=== PATIENT | female | born 2000 | race Caucasian/White ===

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

== ENCOUNTER 2022-01-22 11:46 | Emergency (ER) | payer BC, SELFPAY ==
[2022-01-22 11:50] VITALS: BP 146/73; PULSE 86; RESP 16; TEMP 36.7; O2SAT 100
--- NOTE | 2022-01-22 12:17 | ED.URI ---
HPI - URI/Sore Throat General Chief Complaint: Upper Respiratory Infection Stated Complaint: SORE THROAT/SINUS CONGESITON Time Seen by Provider: 01/22/22 12:18 Source: patient and RN notes reviewed Mode of arrival: ambulatory Limitations: no limitations History of Present Illness HPI Narrative: 21 y/o female presented for c/o sore throat and nasal congestion x2 days. Denies cough,sob, wheezing, n/v/d/f/c. Took ibuprofen for sx. Denies sick contacts. MD elicited complaint: cough Related Data Home Medications Medication Instructions Recorded Confirmed etonogestrel [Nexplanon] SUBDERMAL 07/05/20 Allergies Allergy/AdvReac Type Severity Reaction Status Date / Time No Known Allergies Allergy Verified 07/05/20 18:41 Review of Systems Review of Systems: CONSTITUTIONAL: Denies malaise, chills, sweats, fever EYES: Denies visual changes, redness, or discharge ENT: Reports rhinorrhea, congestion, sore throat, denies sinus pain, otalgia CARDIOVASCULAR: Denies chest pain, palpitations, edema RESPIRATORY: Denies dyspnea cough, post nasal drainage. GASTROINTESTINAL: Denies abdominal pain, nausea, vomiting, diarrhea SKIN: Denies rash or itching MUSCULOSKELETAL: denies myalgia NEUROLOGIC: Denies headache PMFSH Past Medical History Medical History (Updated 01/22/22 @ 12:24 by Bianca Escudero APRN) No active medical problems Surgical History Surgical History No history of previous surgery Family History Family History Mother Hypertension Social History Social History Smoking status: Never smoker Substance use: never Gender identity (if verbalized by the patient): Female Exam Narrative: GENERAL: Ill-appearing, nontoxic HEAD: Normocephalic EYES: conjunctivae clear ENT: Mucous membranes moist. TM pearly hughes with dull light reflex bilaterally; no tragal tenderness. Oropharynx erythematous with enlarged tonsils, without lesions or exudate, no drooling, no hoarseness, no trismus, uvula midline. No tripod positioning, muffled voice, soft palate or pharyngeal wall bulging NECK: Supple. No lymphadenopathy CHEST: Clear to auscultation, breath sounds equal. No wheezing, rhonchi, rales, or stridor. No respiratory distress, speaks in full sentences. HEART: Regular rate and rhythm. No murmur heard. SKIN: Warm, dry, no rash. NEURO: Alert and oriented x3. PSYCH: Normal mood and affect Course Course Emergency Course: Patient is aware of diagnosis, understands and agrees to treatment plan. Anticipatory guidance given. Patient agrees to follow-up as directed and is aware of reasons to seek care at the emergency department. Portions of this record may have been created with voice recognition software Level of Care: Express Care Visit Vital Signs Vital signs: Vital Signs Temperature 98.0 F 01/22/22 11:50 Pulse Rate 86 01/22/22 11:50 Respiratory Rate 16 01/22/22 11:50 Blood Pressure 146/73 H 01/22/22 11:50 Pulse Oximetry 100 01/22/22 11:50 Temperature 98.0 F 01/22/22 11:50 Pulse Rate 86 01/22/22 11:50 Respiratory Rate 16 01/22/22 11:50 Blood Pressure 146/73 H 01/22/22 11:50 Pulse Oximetry 100 01/22/22 11:50 reviewed MDM - URI/Sore Throat MDM Narrative Medical decision making narrative: strep neg, reviewed results with pt Differential Diagnosis Differential diagnosis: Likely upper respiratory infection, sinusitis and viral infection Lab Data Attestation: I reviewed the patient's lab results. Labs: Strep Screen Presumptive Negative *(Reference Range: Negative)* Discharge Plan Discharge Clinical Impression: Allergic rhinitis Qualifiers: Allergic rhinitis trigger: unspecified Allergic rhinitis seasonality: seasonal Qualified Code(s): J30.2 -
== END 2022-01-22 12:30 | disposition home or self-care (01) ==
PROVIDERS: Emergency Provider Nurse Practitioner Family; PCP Pediatrics
DX: J30.2 Other seasonal allergic rhinitis (principal); J02.9 Acute pharyngitis, unspecified
CPT/HCPCS: 87081; 87880; 99213; G0463

== ENCOUNTER 2022-05-11 10:59 | Emergency (ER) | payer BC, SELFPAY ==
--- NOTE | ~2022-05-11 | XR_ITS ---
XR knee RT min 4V DATE: 05/11/2022 11:22 INDICATION: Knee gave out while stepping down. Generalized right knee pain. TECHNIQUE: 4 views including crosstable lateral COMPARISON: None FINDINGS: No fracture or dislocation or joint effusion. No periosteal reaction or bone destruction. N o radiopaque intra-articular loose body or chondrocalcinosis. Joint spaces are well preserved. IMPRESSION: Normal examination Reviewed, dictated and finalized at location A. IMPRESSION: Normal examination
[2022-05-11 11:07] VITALS: BP 131/77; PULSE 82; RESP 18; TEMP 36.8; O2SAT 100
--- NOTE | 2022-05-11 11:39 | ED.LOWEXIN ---
HPI - Extremity Injury (Lower) General Chief Complaint: Extremity Injury, Lower Stated Complaint: right knee injury History of Present Illness HPI Narrative: PATIENT PRESENTS WITH RIGHT KNEE PAIN. PATIENT REPORTS STEPPING DOWN FROM TRUCK AND TWISTING HER KNEE. NO DEFORMITY NO BRUISNG AND NO SWELLING PATIENT REPORTS PAIN WITH AMBULATION Related Data Home Medications Medication Instructions Recorded Confirmed norgestimate 0.25 mg-ethinyl 1 tablet PO DAILY 05/11/22 05/11/22 estradiol 35 mcg tablet (Shahida) Allergies Allergy/AdvReac Type Severity Reaction Status Date / Time No Known Allergies Allergy Verified 05/11/22 12:01 Review of Systems Review of Systems: CONSTITUTIONAL: Denies fever, chills, or sweats. EYES: Denies visual changes, redness, or discharge. ENT: Denies rhinorrhea, congestion, sore throat, or otalgia. CARDIOVASCULAR: Denies chest pain, palpitations, or edema. RESPIRATORY: Denies cough or dyspnea. GASTROINTESTINAL: Denies abdominal pain, nausea, vomiting, or diarrhea. GENITOURINARY: Denies dysuria or hematuria. SKIN: Denies rash or itching. MUSCULOSKELETAL: Denies back pain, joint pain, or myalgia. NEUROLOGIC: Denies headache, numbness, or weakness. PSYCHIATRIC: Denies anxiety or depression. [facility] Past Medical History Medical History (Updated 05/11/22 @ 11:46 by ELISHA Rodriguez) No active medical problems Surgical History Surgical History No history of previous surgery Family History Family History Mother Hypertension Social History Social History Smoking status: Never smoker Substance use: never Gender identity (if verbalized by the patient): Female Comments At time of signature, agree with nursing past medical, surgical, social and family history. There is no relevant family history pertinent to the presenting complaint Exam Narrative: GENERAL: Well-appearing, well-nourished, and in no acute distress. HEAD: Normocephalic, atraumatic. EYES: PERRLA and EOMI. ENT: Nares clear, no rhinorrhea or epistaxis. Mucous membranes moist. NECK: Supple. CHEST: Clear to auscultation. No respiratory distress. HEART: Regular rate and rhythm. No murmur heard. Normal peripheral pulses. ABDOMEN: Soft, nontender, nondistended, normal active bowel sounds. EXTREMITIES: Normal range of motion. No edema. SKIN INTACT. NO DEFORMITY. NORMAL ROM, HAS FULL EXTENSION AND FLEXION. COMPARTMENTS SOFT. NEGATIVE ANTERIOR, POSTERIOR DRAWER SIGNS ON TEST. NO CREPITUS. DP PULSE, NORMAL CAPILLARY REFILL MCMURRAYS, PAIN TO RIGHT MEDIAL AND DISTAL KNEE WITH KNEE FLEXION, INTERNAL AND EXTERNAL FOOT ROTATION.NO ERYTHEMA OR INCREASED WARMTH TO CALF. . SKIN: Warm, dry, no rash. NEURO: No focal deficits. Alert and oriented x3. Griselda Coma Scale Eye Opening: Spontaneous 4 Sherrill Coma Scale Motor: Obeys Commands 6 Sherrill Coma Scale Verbal: Oriented 5 Sherrill Coma Scale Total 15 Course Course Level of Care: Express Care Visit Vital Signs Vital signs: Vital Signs Temperature 36.8 C 05/11/22 11:07 Pulse Rate 82 05/11/22 11:07 Respiratory Rate 18 05/11/22 11:07 Blood Pressure 131/77 05/11/22 11:07 Pulse Oximetry 100 05/11/22 11:07 Oxygen Delivery Room Air 05/11/22 11:07 Temperature 36.8 C 05/11/22 11:07 Pulse Rate 82 05/11/22 11:07 Respiratory Rate 18 05/11/22 11:07 Blood Pressure 131/77 05/11/22 11:07 Pulse Oximetry 100 05/11/22 11:07 Oxygen Delivery Room Air 05/11/22 11:07 MDM - Extremity Injury (Lower) Imaging Data Attestation: I personally reviewed and interpreted this imaging study as follows: Radiologist's impression: NEGATIVE KNEE XRAY Discharge Plan Discharge Clinical Impression: Knee contusion, Muscle strain of right knee Patient Disposition: Home, Self-Care Cond
== END 2022-05-11 12:11 | disposition home or self-care (01) ==
PROVIDERS: Emergency Provider Nurse Practitioner Family; PCP Internal Medicine
DX: S80.01XA Contusion of right knee, initial encounter (principal); X50.9XXA Other and unspecified overexertion or strenuous movements or postures, initial encounter; S86.911A Strain of unspecified muscle(s) and tendon(s) at lower leg level, right leg, initial encounter
CPT/HCPCS: 73564; 99213; G0463

== ENCOUNTER 2023-12-29 18:46 | Emergency (ER) | payer BC, SELFPAY ==
[2023-12-29 19:04] VITALS: BP 129/71; PULSE 71; RESP 18; TEMP 37; O2SAT 100
--- NOTE | 2023-12-29 19:05 | ED.SKABFB ---
HPI - Skin/Abscess/Foreign Bdy General Chief complaint: Skin/Abscess/Foreign Body Stated complaint: Skin Problem/Right Leg Time Seen by Provider: 12/29/23 19:05 Source: patient Mode of arrival: ambulatory Limitations: no limitations History of Present Illness HPI narrative: 23 y/o female presented for c/o right calf discomfort with red bruising noted today. Patient has been wearing a right knee immobilizer since surgery on meniscus and ACL 06/2023. States she noticed a yellow bruise yesterday to the calf, but denies any injury. States the bruised area is red today, tender to touch and with walking, and area is firm to calf. Denies significant lower leg swelling swelling. Pt is currently wearing a heart monitor x3 weeks for near syncopal episodes, and has lost 60 lbs since surgery. Also reports bruising more easily. Currently denies palpitations, sob, wheezing, dizziness, n/v/d/f/c. Related Data Home Medications Medication Instructions Recorded Confirmed norgestimate 0.25 mg-ethinyl 1 tablet PO DAILY 05/11/22 05/11/22 estradiol 35 mcg tablet (Shahida) Allergies Allergy/AdvReac Type Severity Reaction Status Date / Time No Known Allergies Allergy Verified 05/11/22 12:01 Review of Systems Review of Systems: CONSTITUTIONAL: Denies body aches, fever, chills, or sweats. CARDIOVASCULAR: Denies chest pain, palpitations, or edema. RESPIRATORY: Denies cough or dyspnea. GASTROINTESTINAL: Denies abdominal pain, nausea, vomiting, or diarrhea. SKIN: reports bruising MUSCULOSKELETAL: Denies back pain, joint pain, or myalgia. NEUROLOGIC: Denies numbness, tingling, or weakness. [facility] Past Medical History Medical History No active medical problems Surgical History Surgical History No history of previous surgery Family History Family History Mother Hypertension Social History Social History Smoking status: Never smoker Substance use: never Living arrangements: with family Gender identity (if verbalized by the patient): Female Comments At time of signature, I have reviewed and agree with nursing past medical, surgical, social and family history unless otherwise noted. Please see nursing chart for further information. There is no relevant family history pertinent to the presenting complaint Exam Narrative: GENERAL: Well-appearing EYES: conjunctivae clear, and EOMI. ENT: Mucous membranes moist. Oropharynx without edema, erythema or lesions. NECK: Supple. No lymphadenopathy CHEST: Clear to auscultation. HEART: Regular rate and rhythm. Heart monitor in place. EXT: RLE calf with approx 5cm diameter area of warmth, red discoloration/bruising, firm calf, mild tenderness with palpation. Positive Homans sign. No ankle edema. CMS intact bilaterally. SKIN: Warm, dry. NEURO: Alert and oriented x3. Course Course Emergency Course: Patient is aware of diagnosis, understands and agrees to treatment plan. Anticipatory guidance given. Patient agrees to follow-up as directed and is aware of reasons to seek care at the emergency department. Portions of this record may have been created with voice recognition software Level of Care: Express Care Visit Vital Signs Vital signs: Reviewed Transfer Transfered to: [facility] ([place]) Transportation: Other (private vehicle) Transfer rationale: Pt is agreeable to transfer. Requests transfer to [facility] via private vehicle. Risks of transportation reviewed with pt including injury, worsening of condition and . v/u. Report called to hospital, spoke with Narcisa VALDEZ, Dr Becerra, accepting physician. Pt is in stable condition at time of transfer. Advised to remain NPO and go directly to the hospital. MDM - Skin/Abscess/Forei
== END 2023-12-29 19:32 | disposition short-term general hospital (02) ==
PROVIDERS: Emergency Provider Nurse Practitioner Family; PCP Internal Medicine
DX: M79.661 Pain in right lower leg (principal)
CPT/HCPCS: 99212; G0463

== ENCOUNTER 2025-09-02 19:26 | Emergency (ER) | payer BC, SELFPAY ==
--- OUTSIDE RECORDS SUMMARY | 2023-09-25 02:00 | XMS_ITS | Continuity of Care Document ---
Author Organization [facility] Address [address] [place] [address] [address] [place] [address] Phone Care Team Providers Care Compound Machine Operator Name Role Phone Hoang PT, JASONT, Skye Unavailable Unavailable Procedures Procedure Date Therapeutic Activities Neuromuscular Re-Ed Therapeutic Exercise Therapeutic Activities Neuromuscular Re-Ed Therapeutic Exercise Therapeutic Activities Neuromuscular Re-Ed Therapeutic Exercise Therapeutic Activities Neuromuscular Re-Ed Therapeutic Exercise Therapeutic Activities Neuromuscular Re-Ed Therapeutic Exercise Therapeutic Activities Neuromuscular Re-Ed Therapeutic Exercise Therapeutic Activities Neuromuscular Re-Ed Therapeutic Exercise Therapeutic Activities Neuromuscular Re-Ed Therapeutic Exercise Therapeutic Activities Neuromuscular Re-Ed Therapeutic Exercise Hot or Cold Pack Progress Note Therapeutic Activities Neuromuscular Re-Ed Therapeutic Exercise Therapeutic Activities Neuromuscular Re-Ed Therapeutic Exercise Therapeutic Activities Neuromuscular Re-Ed Therapeutic Exercise Therapeutic Activities Neuromuscular Re-Ed Therapeutic Exercise Hot or Cold Pack Therapeutic Activities Neuromuscular Re-Ed Therapeutic Exercise Hot or Cold Pack PT Evaluation Moderate Complexity Therapeutic Activities Neuromuscular Re-Ed Hot or Cold Pack Progress Note Neuromuscular Re-Ed Therapeutic Activities Manual Therapy Therapeutic Exercise Therapeutic Activities Therapeutic Exercise Neuromuscular Re-Ed Manual Therapy Therapeutic Activities Neuromuscular Re-Ed Manual Therapy Therapeutic Exercise Therapeutic Activities Neuromuscular Re-Ed Therapeutic Exercise Manual Therapy Therapeutic Activities Therapeutic Exercise Neuromuscular Re-Ed Therapeutic Activities Manual Therapy Therapeutic Exercise Neuromuscular Re-Ed Therapeutic Activities Therapeutic Exercise Manual Therapy Neuromuscular Re-Ed Therapeutic Exercise Neuromuscular Re-Ed Manual Therapy Therapeutic Activities Therapeutic Activities Therapeutic Exercise Hot or Cold Pack Therapeutic Activities Neuromuscular Re-Ed Therapeutic Exercise PT Evaluation Moderate Complexity Therapeutic Activities Therapeutic Exercise Advance Directives Directive Yes / No Effective Date File Name No Information Encounters Encounter Description Practice Location Reason(s) For Visit Diagnoses Date Provider Providers Copied on Encounter [address] [address], [place], [place], [id number], tel:[phone] [place] No Information Hoang Reddyon. . Referring Provider: Hunter Rojas [address], [place], [address]. tel:[phone] [facility] [address] [place] [address] [address], [place], [place], [address], tel:[phone] [place] No Information Hoang Reddyon. . Referring Provider: Hunter Rojas [address], [place], [address]. tel:[phone], [id number], tel:[phone] [place] No Information Hoang Reddyon. . Referring Provider: Hunter Rojas [address], [place], [address]. tel:[phone] [address], [place], [address], tel:[phone] [place] No Information Estefanía Womack. [address] [place] [address], [facility] [address], [place], [facility], . tel:[phone] Referring Provider: Hunter Rojas [address], [place], [address]. tel:[phone], [place], [place], [address], tel:[phone] [place] No Information Liberty Barnett. . Referring Provider: Hunter Rojas [address] [facility] [address], [place], [address]. tel:[phone] [facility] [address] [place], [place] [address], [place], [place], [address], tel:[phone] [place] No Information Liberty Barnett. . Referring Provider: Hunter Rojas, [address] [facility] [address], [place], [facility]. tel:[phone] [address], [place], [place], [address], [place] tel:[phone] [place] No Information Estefanía Womack. [address] [place] [address], [address], [place], [facility], . tel:[phone] Referring Provider: Hunter Rojas, [address] [facility] [address] [facility], [place], [facility]. tel:[phone] [facility] [address] [facility] [address], [place], [place], [address], [place] tel:[phone] [place] No Information Liberty Barnett. . Referring Provider: Hunter Rojas, [address] [facility] [address], [place], [facility]. tel:[phone], [place], [place], [address], [place] tel:[phone] [place] No Information Estefanía Womack. [address] [place] [address], [address], [place], [facility], . tel:[phone] Referring Provider: Hunter Rojas, [address] [facility] [address], [place], [facility]. tel:[phone] [facility], [address] [place], [place] [address], [place], [place], [address], tel:[phone] [place] No Information Liberty Barnett. . Referring Provider: Hunter Rojas, [address] [facility] [address], [place], [address]. tel:[phone] [facility] [address] [facility], [place], [place], [address], tel:[phone] [place] No Information Liberty Barnett. . Referring Provider: Hunter Rojas [address] [facility] [address], [place], [address]. tel:[phone] [facility] [address], [place], [place], [address], [place] tel:[phone] [place] No Information Liberty Barnett. . Referring Provider: Hunter Rojsa [address] [facility] [address], [place], [address]. tel:[phone] [facility] [address] [facility], [place], [address], [place] tel:[phone] [place] No Information Estefanía Womack. [address] [facility], [facility] [address], [place], [facility], . tel:[phone] Referring Provider: Hunter Rojas, [address] [facility] [address], [place], [address]. tel:[phone] [facility] [address] [facility], [place], [place], [address], [place] tel:[phone] [place] No Information Estefanía Womack. [address] [facility], [address], [place], [facility], . tel:[phone] Referring Provider: Hunter Rojas, [address] [facility] [address], [place], [address]. tel:[phone] [facility] [address] [facility] [address], [place], [place], [address], [place] tel:[phone] [place] No Information Liberty Barnett. . Referring Provider: Hunter Rojas, [address] [facility] [address], [place], [address]. tel:[phone], [place], [place], [address], tel:[phone] [place] No Information Short Chante. . Referring Provider: Hunter Rojas, [address] [facility] [address], [place], [address]. tel:[phone], [place], [place], [address], tel:[phone] [place] No Information Modglin Richard. . Referring Provider: Hunter Rojas [address] [facility] [address], [place], [address]. tel:[phone], [place], [place], [address], [place] tel:[phone] [place] No Information Estefanía Womack. [address] [place] [address], [address], [facility], . tel:[phone] Referring Provider: Hunter Rojas [address] [facility] [address], [place], [address]. tel:[phone], [place], [place], [address], [place] tel:[phone] [place] No Information Estefanía Womack. [address] [facility], [address], [place], [facility], . tel:[phone] Referring Provider: Hunter Rojas [address] [facility] [address], [place], [address]. tel:[phone] [facility] [address], [place], [place], [address], tel:[phone] [place] No Information Estefanía Womack. [address] [place] [address], [address], [place], [facility], . tel:[phone] Referring Provider: Hunter Rojas, [address] [facility] [address], [place], [facility]. tel:[phone] [place] [address] [address], [place], [place], [address], tel:[phone] [place] No Information Barrera Ramos. . Referring Provider: Hunter Rojas, [address] [facility] [address], [place], [facility]. tel:[phone] [facility] [address] [facility], [place], [place], [address], tel:[phone] [place] No Information Estefanía Womack. [address] [place] [address], [address], [place], [facility], . tel:[phone] Referring Provider: Hunter Rojas, [address] [facility] [address], [place], [address]. tel:[phone] [place] [address] [facility], [place], [place], [address], tel:[phone] [place] No Information Estefanía Womack. [address] [place] [address], [address], [place], [facility], . tel:[phone] Referring Provider: Hunter Rojas [address] [facility] [address], [place], [facility]. tel:[phone] [facility] [address] [facility] [address], [place], [place], [address], tel:[phone] [place] No Information Short Chante. . Referring Provider: Hunter Rojas, [address] [facility] [address], [place], [address]. tel:[phone] [address], [place], [address], tel:[phone] [place] No Information Estefanía Womack. [address] [facility], [address], [place], [address], . tel:[phone] Referring Provider: Hunter Rojas, [address] [facility] [address], [place], [address]. tel:[phone] [address], [place], [address], tel:[phone] [place] No Information Short Chante. . Referring Provider: Hunter Rojas, [address] [facility] [address], [place], [address]. tel:[phone] Family History Family Member Type Diagnosis Age At Onset No Information Payers Payer name Insurance type Covered constitution party ID Authorhaven zayas(s) [facility] [id number] Social History Type Description Quantity Date Captured Comments Sex Female Smoking Status No Information Chief Complaint And Reason For Visit No Information Reason For Referral Reason For Referral No Information History Of Present Illness Encounter Date Complaint History Of Prese nt Illness No Information Functional Status Date Functional Assessmen t No Information Instructions Date Instruction Additional Infor mation Giving encouragement to exercise Related to Overweight Giving encouragement to exercise Related to Overweight Giving encouragement to exercise Related to Overweight Giving encouragement to exercise Related to Overweight Assessments Type Assessment Date No Information Patient Care Teams Name Effective Dates (start - stop) Status Members No Information
--- OUTSIDE RECORDS SUMMARY | 2023-09-25 02:00 | XMS_ITS | Continuity of Care Document ---
Author Organization [facility] Address [address] [place] [address] [address] [place] [address] Phone Care Team Providers Care Tear Down Man Name Role Phone Hoang PT, JASONT, Skye [...] Re-Ed Hot or Cold Pack Progress Note Therapeutic Exercise Therapeutic Activities Manual Therapy Neuromuscular Re-Ed Therapeutic Activities Manual Therapy Therapeutic Exercise Neuromuscular Re-Ed Therapeutic Activities Neuromuscular Re-Ed Manual Therapy Therapeutic Exercise Therapeutic Activities Manual Therapy Neuromuscular Re-Ed Therapeutic Exercise Therapeutic Activities Therapeutic Exercise Neuromuscular Re-Ed Therapeutic Activities Manual Therapy Therapeutic Exercise Neuromuscular Re-Ed Therapeutic Activities Therapeutic Exercise Manual Therapy Neuromuscular Re-Ed Neuromuscular Re-Ed Therapeutic Exercise Manual Therapy Therapeutic Activities Therapeutic Exercise Hot or Cold Pack Therapeutic Activities Neuromuscular Re-Ed Therapeutic Exercise Therapeutic Activities PT Evaluation Moderate Complexity Therapeutic Activities Therapeutic Exercise Advance Directives Directive Yes / No Effective Date File Name No Information Encounters Encounter Description Practice Location Reason(s) For Visit Diagnoses Date Provider Providers Copied on Encounter [address] [address], [place], [place], [id number], tel:[phone] [place] No Information Hoang Reddyon. . Referring Provider: Hunter Rojas [address], [place], [address]. tel:[phone] [facility] [address] [place] [address], [place], [place], [address], tel:[phone] [place] No Information Hoang Reddyon. . Referring Provider: Hunter Rojas [address], [place], [address]. tel:[phone], [address], tel:[phone] [place] No Information Hoang Reddyon. . Referring Provider: Hunter Rojas [address], [place], [address]. tel:[phone], [place], [address], tel:[phone] [place] No Information Estefanía Womack. [address] [place] [address], [facility] [address], [place], [facility], . tel:[phone] Referring Provider: Hunter Rojas [address], [place], [address]. tel:[phone], [place], [place], [address], tel:[phone] [place] No Information Liberty Barnett. . Referring Provider: Hunter Rojas [address] [facility] [address], [place], [address]. tel:[phone] [facility] [address] [place], [place] [address], [place], [place], [address], tel:[phone] [place] No Information Liberty Barnett. . Referring Provider: Hunter Rojas, [address] [facility] [address], [place], [place], [facility]. tel:[phone] [address], [place], [place], [address], [place] tel:[phone] [place] No Information Estefanía Womack. [address] [place] [address], [address], [place], [place], [facility], . tel:[phone] Referring Provider: Hunter Rojas, [address] [facility] [address] [facility], [place], [place], [facility]. tel:[phone] [facility] [address] [facility] [address], [place], [place], [address], [place] tel:[phone] [place] No Information Liberty Barnett. . Referring Provider: Hunter Rojas, [address] [facility] [address], [place], [facility]. tel:[phone] [address], [place], [place], [address], [place] tel:[phone] [place] No Information Estefanía Womack. [address] [place] [address], [address], [place], [facility], . tel:[phone] Referring Provider: Hunter Rojas, [address] [facility] [address], [place], [facility]. tel:[phone] [facility], [address] [place], [place] [address], [place], [place], [address], tel:[phone] [place] No Information Liberty Barnett. . Referring Provider: Hunter Rojas, [address] [facility] [address], [place], [address]. tel:[phone] [facility] [address] [facility] [address], [place], [place], [address], tel:[phone] [place] No Information Liberty Barnett. . Referring Provider: Hunter Rojas [address] [facility] [address], [place], [address]. tel:[phone] [facility] [address], [place], [place], [address], [place] tel:[phone] [place] No Information Liberty Barnett. . Referring Provider: Hunter Rojas [address] [facility] [address], [place], [address]. tel:[phone] [facility] [address] [facility] [address], [place], [address], [place] tel:[phone] [place] No Information Estefanía Womack. [address] [facility], [facility] [address], [place], [facility], . tel:[phone] Referring Provider: Hunter Rojas, [address] [facility] [address], [place], [address]. tel:[phone] [facility] [address] [facility], [place], [address], [place] tel:[phone] [place] No Information Estefanía Womack. [address] [facility], [address], [place], [facility], . tel:[phone] Referring Provider: Hunter Rojas, [address] [facility] [address], [place], [address]. tel:[phone] [facility] [address] [facility] [address], [place], [address], [place] tel:[phone] [place] No Information Liberty Barnett. . Referring Provider: Hunter Rojas, [address] [facility] [address], [place], [address]. tel:[phone], [place], [place], [address], tel:[phone] [place] No Information Short Chante. . Referring Provider: Hunter Rojas, [address] [facility] [address], [place], [address]. tel:[phone], [place], [place], [address], tel:[phone] [place] No Information Modglin Richard. . Referring Provider: Hunter Rojas [address] [facility] [address], [place], [address]. tel:[phone], [place], [place], [address], [place] tel:[phone] [place] No Information Estefanía Womack. [address] [place] [address], [address], [facility], . tel:[phone] Referring Provider: Hunter Rojas [address] [facility] [address], [place], [address]. tel:[phone], [place], [address], [place] tel:[phone] [place] No Information Estefanía Womack. [address] [facility], [address], [place], [facility], . tel:[phone] Referring Provider: Hunter Rojas [address] [facility] [address], [place], [address]. tel:[phone] [facility] [address], [place], [place], [address], tel:[phone] [place] No Information Estefanía Womack. [address] [place] [address], [address], [place], [facility], . tel:[phone] Referring Provider: Hunter Rojas, [address] [facility] [address], [place], [facility]. tel:[phone] [place] [address] [address], [place], [place], [address], tel:[phone] [place] No Information Barrera Ramos. . Referring Provider: Hunter Rojas, [address] [facility] [address], [place], [facility]. tel:[phone] [facility] [address] [facility], [place], [place], [address], tel:[phone] [place] No Information Estefanía Womack. [address] [place] [address], [address], [place], [facility], . tel:[phone] Referring Provider: Hunter Rojas, [address] [facility] [address], [place], [address]. tel:[phone] [place] [address] [facility], [place], [place], [address], tel:[phone] [place] No Information Estefanía Womack. [address] [place] [address], [address], [place], [facility], . tel:[phone] Referring Provider: Hunter Rojas [address] [facility] [address], [place], [facility]. tel:[phone] [facility] [address] [facility], [place], [place], [address], tel:[phone] [place] No Information Short Chante. . Referring Provider: Hunter Rojas, [address] [facility] [address], [place], [address]. tel:[phone], [place], [address], tel:[phone] [place] No Information Estefanía Womack. [address] [facility], [address], [place], [address], . tel:[phone] Referring Provider: Hunter Rojas, [address] [facility] [address], [place], [address]. tel:[phone], [place], [address], tel:[phone] [place] No Information Short Chante. . Referring Provider: Hunter Rojas, [address] [facility] [address], [place], [address]. tel:[phone] Family History Family Member Type Diagnosis Age At Onset No Information Payers Payer name Insurance type Covered libertarian ID Authorhaven zayas(s) [facility] [id number] Social History Type Description Quantity Date Captured [...]
--- OUTSIDE RECORDS SUMMARY | 2025-09-02 19:28 | XMS_ITS | Clinical Summary ---
Author Organization [facility] Address [address] [place] [address] Phone Care Team Providers Care Speed Runner Name Role Phone Romeo Worley MD Primary Care Provider [phone] Allergies No known active allergies Medications PreviDent 5000 Booster Plus 1.1 % Paste APPLY 1 TO 2 TIMES DAILY TOOTHPASTE 5 Active rimegepant (Nurtec ODT) 75 mg Tablet, Rapid Dissolve Take 1 Tablet (75 mg) by mouth 1 time daily as needed (migraine). 15 Tablet 3 5 Active norgestimate-eth inyl estradioL (Shahida) 0.25 mg-35 mcg tabletIndication s:Encounter for control pills maintenance Take 1 Tablet by mouth daily. 84 Tablet 3 5 Active ergocalciferol (VITAMIN D2) 50,000 unit capsule Take 1 Capsule (50,000 Units) by mouth every 7 days. 12 Capsule 5 Active sertraline (Zoloft) 50 mg tabletIndication s:ALEXEI (generalized anxiety disorder) Take 1 Tablet (50 mg) by mouth daily. 90 Tablet 1 5 Active hyoscyamine 0.125 mg Tablet, Sublingual Place 1 Tablet (0.125 mg) under tongue every 4 hours as needed for Spasm. 120 Tablet 3 5 Active Active Problems Problem Noted Date Diagnosed Date S/P arthroscopic reconstruct ion of ACL of right knee using quadriceps tendon autograft 01/08/2024 S/P medial meniscus repair of right knee 023 S/P lateral meniscus repair of right knee 2022 Patellofemoral syndrome of left knee 01/31/2022 Resolved Problems Problem Noted Date Diagnosed Date Resolved Date Old complete tear of anterio r cruciate ligament of right knee 06/17/2022 01/08/2024 Encounters Date Type Department Care Team Description 08/25/2025 10:00 AM ESTIMATOR LUMBER Office Visit [facility] [address] [place] [address] Chaparrita Jones PA Ileitis (Primary Dx); Dyspepsia 08/10/2025 Telephone [facility] [address] [place] [address] Arabella Rene PA appointment reschedule attempt 07/26/2025 External Device Data STL ABSTRACTION Provider, Abstract 06/28/2025 11:00 AM CDT Office Visit [facility] [address] [place] [address] Arabella Rene PA ALEXEI (generalized anxiety disorder) (Primary Dx); Ileitis 06/27/2025 Results Follow-Up [facility] [address] [place] [address] Arabella Rene PA CBC WITH DIFFERENTIAL, VITAMIN B12 AND FOLATE, VITAMIN D 25 HYDROXY 06/21/2025 External Device Data STL ABSTRACTION Provider, Abstract from Last 3 Months Immunizations Immunization Administration Dates Next Due (GARDASIL)(9-45 YRS) HUMAN P APILLOMAVIRUS VACCINE, TYPES 6, 11, 16, 18, QUADRIVALENT (4VHPV), 3 DOSE, IM 04/26/2016,07/29/2015,04/24/2015 (MENACTRA)(9 MO-55 YR) MENIN GOCOCCAL POLYSACCHARIDE A, C, Y AND W-135 DIPTHERIA TOXOID CONJUGATE VACCINE, (PF), 0.5ML, IM 05/21/2018,04/24/2015 (PFIZER)(12 YR UP) COVID-19 VACCINE - EMERGENCY USE AUTHORIZATION, MRNA, [id number](PF) 30 MCG/0.3 ML IM SUSP 11/06/2021 Family History Medical History Relation Name Comments High Cholesterol Father Greyson Breast Cancer Maternal Aunt half High Cholesterol Mother Sabrina Hypertension Mother Sabrina Colon Cancer Neg Hx Ovarian Cancer Neg Hx Relation Name Status Comments Father Greyson Alive Maternal Aunt Mother Sabrina Alive Social History Tobacco Use Types Packs/Day Years Used Date Smoking Tobacco: Never Passive Smoke Exposure: Never Smokeless Tobacco: Never Tobacco Cessation:Counseling Given: Not Answered Alcohol Use Standard Drinks/Week Comments Yes 0 (1 standard drink = 0.6 oz pur e alcohol) occ Feeling Safe Answer Date Recorded Are you in a relationship wi th someone who hurts you emotionally and/or physically? No 04/29/2024 Food Insecurity Answer Date Recorded Social/Environmental Concerns No concerns Transportation Needs Answer Date Record ed Social/Environmental Concerns No concerns Housing Stability Answer Date Recorded Social/Environmental Concerns No concerns Utility Needs Answer Date Recorded Social/Environmental Concerns No concerns Comments No Sex and Gender Information Value Date Recorded Sex Assigned at Not on file Legal Sex Female 4:21 PM ESTIMATOR LUMBER Gender Identity Not on file Sexual Orientation Not on file Last Filed Vital Signs Vital Sign Reading Time Taken Comments Blood Pressure 113/74 08/25/2025 9:45 AM ESTIMATOR LUMBER Pulse 69 08/25/2025 9:45 AM ESTIMATOR LUMBER Temperature 36.6 C (97.8 F) 06/28/2025 10:55 AM CDT Respiratory Rate 16 06/28/2025 10:55 AM CDT Oxygen Saturation 99% 06/28/2025 10:55 AM CDT Inhaled Oxygen Concentration - - Weight 81.4 kg (179 lb 6.4 oz) 08/25/2025 9:45 A M ESTIMATOR LUMBER Height 165.1 cm (5' 5) 08/25/2025 9:45 AM ESTIMATOR LUMBER Body Mass Index 29.85 08/25/2025 9:45 AM ESTIMATOR LUMBER Plan of Treatment Health Maintenance Due Date Last Done Comments DTAP/TDAP/TD VACCINES (1 - Tdap) 2021 HEPATITIS B VACCINES (1 of 3 - 19+ 3-dose series) 2021 HPV/Cotest (21-29) 2023 INFLUENZA VACCINE (#1) 2025 COVID-19 Vaccine (2 - 2024-2 6 season) 2025 11/06/2021 CHLAMYDIA SCREENING (ANNUAL) 11-24 YEARS 01/10/2026 01/10/2025, 01/01/2023, 11/20/2021, Additional history exists CERVICAL CANCER SCREENING 01/29/2027 PAP SMEAR 01/29/2027 01/30/2024 HPV VACCINES Completed 04/26/2016, 1001/2015, 04/24/2015 Preventative Visit- Commercial Completed 0 01/10/2025, 01/30/2024, 01/01/2023, Additional history exists Medical Devices Implanted Type Area Financial Operations Consultant Device Identifier Shelf Expiration Date Model / Serial / Lot Tightrope Ii Btb Ib W/ Flipcutter [id number] - [id number] Implanted:Qty: 1 on 06/27/2023 by Hunter Bautista MD at [facility] Closplint Right: Knee [employer] [id number] 05/05/2027 AR-1288BTB IB-FC3 / / [id number] Closplint Suture Fiberstitch 24 Crvd 2-0 24in Fiberwire Ar-4570-24 - [id number] Implanted:Qty: 1 on 06/27/2023 by Hunter Bautista MD at [facility] Closplint Right: Knee [employer] [id number] 02/25/2027 AR-4570-24 / / [id number] Closplint Suture Fiberstitch 24 Crvd 2-0 24in Fiberwire Ar-4570-24 - [id number] Implanted:Qty: 1 on 06/27/2023 by Hunter Bautista MD at [facility] Closplint Right: Knee [employer] [id number] 02/25/2027 AR-4570-24 / / [id number] Closplint Suture Fiberstitch 24 Crvd 2-0 24in Fiberwire Ar-4570-24 - [id number] Implanted:Qty: 1 on 06/27/2023 by Hunter Bautista MD at [facility] Closplint Right: Knee [employer] [id number] 02/25/2027 AR-4570-24 / / [id number] Closplint Suture Fiberstitch 24 Crvd 2-0 24in Fiberwire Ar-4570-24 - [id number] Implanted:Qty: 1 on 06/27/2023 by Hunter Bautista MD at [facility] Closplint Right: Knee [employer] [id number] 02/25/2027 AR-4570- / [id number] Closplint Suture Fiberstitch 24 Crvd 2-0 24in Fiberwire Tn-4570- - [id number] Implanted:Qty: 1 on 06/27/2023 by Hunter Bautista MD at [facility] Closplint Right: Knee [employer] [id number] 02/25/2027 AR-4570- / [id number] Closplint Suture Fiberstitch 24 Crvd 2-0 24in Fiberwire Tn-4570- - [id number] Implanted:Qty: 1 on 06/27/2023 by Hunter Bautista MD at [facility] Closplint Right: Knee [employer] [id number] 02/25/2027 AR-4570-E109 Closplint Suture Fiberstitch 24 Crvd 2-0 24in Fiberwire Tn-4570-24 - [id number] Implanted:Qty: 1 on 06/27/2023 by Hunter Bautista MD at [facility] Closplint Right: Knee [employer] [id number] 02/25/2027 AR-4570- / [id number] Closplint Internal Brace Knee Lig Augmnt Repair Ar-5511-Cp - [id number] Implanted:Qty: 1 on 06/27/2023 by Hunter Bautista MD at [facility] Closplint Right: Knee [employer] [id number] 02/02/2027 AR-5511-CP / / [id number] Description:Not All Ar[employer] components are processed on requisition, [id number]. Imp Sys Allograft Graftlink Acl [id number] - [id number] Implanted:Qty: 1 on 06/27/2023 by Hunter Bautista MD at [facility] Closplint Right: Knee [employer] [id number] 11/05/2027 AR-1588AL- CP / / [id number] Closplint Suture Fiberstitch 24 Crvd 2-0 24in Fiberwire Ar-4570-24 - [id number] Implanted:Qty: 1 on 06/27/2023 by Hunter Bautista MD at [facility] Closplint Right: Knee [employer] [id number] 02/25/2027 AR-4570-24 / / [id number] Closplint Suture Fiberstitch 24 Crvd 2-0 24in Fiberwire Ar-4570-24 - [id number] Implanted:Qty: 1 on 06/27/2023 by Hunter Bautista MD at [facility] Closplint Right: Knee [employer] [id number] 02/25/2027 AR-4570-24 / / [id number] Closplint Suture Fiberstitch 24 Crvd 2-0 24in Fiberwire Ar-4570-24 - [id number] Implanted:Qty: 1 on 06/27/2023 by Hunter Bautista MD at [facility] Closplint Right: Knee [employer] [id number] 02/25/2027 AR-4570-24 / [id number] Closplint Suture Fiberstitch 24 Crvd 2-0 24in Fiberwire Ar-4570-24 - [id number] Implanted:Qty: 1 on 06/27/2023 by Hunter Bautista MD at [facility] Closplint Right: Knee [employer] [id number] 02/25/2027 AR-4570-24 / [id number] Closplint Suture Fiberstitch 24 Crvd 2-0 24in Fiberwire Ar-4570-24 - [id number] Implanted:Qty: 1 on 06/27/2023 by Hunter Bautista MD at [facility] Closplint Right: Knee [employer] [id number] 02/25/2027 AR-4570-24 / [id number] Closplint Suture Fiberstitch 24 Crvd 2-0 24in Fiberwire Ar-4570-24 - [id number] Implanted:Qty: 1 on 06/27/2023 by Hunter Bautista MD at [facility] Closplint Right: Knee [employer] [id number] 02/25/2027 DILSHAD-4570-24 E109 Closplint Suture Fiberstitch 24 Crvd 2-0 24in Fiberwire Tn-4570-24 - [id number] Implanted:Qty: 1 on 06/27/2023 by Hunter Bautista MD at [facility] Closplint Right: Knee [employer] [id number] 02/25/2027 AR-4570-24 / / [id number] Tightrope Ii Implant Internal Brace Implanted:Qty: 1 on 06/27/2023 by Hunter Bautista MD at [facility] Right: Knee 03/05/2028 AR-1588RTT 2-IB / / [id number] Tightrope Ii Abs Implant With Needle Implanted:Qty: 1 on 06/27/2023 by Hunter Bautista MD at [facility] Right: Knee 03/05/2028 AR-1588TNT 2 / / [id number] Procedures Procedure Name Priority Date/Time Associated Diagnosis Comments VITAMIN D 25 HYDROXY Routine 06/24/2025 10:45 AM CDT Vitamin D deficiency VITAMIN B12 AND FOLATE Routine 06/24/2025 10:45 AM CDT Vitamin B12 deficiency (non anemic) CBC WITH DIFFERENTIAL Routine 06/24/2025 10:45 AM CDT Other fatigue GC/CHLAMYDIA, UROGENITAL Routine 01/10/2025 10:38 AM CDT Screening for venereal disease CERV/VAG CYTO AGE BASED SCREEN PAP W CT/NG, TRICH Routine 01/30/2024 10:41 AM CDT Screening for HPV (human papillomavirus) Encounter for Papanicolaou smear for cervical cancer screening Screening examination for venereal disease from Last 3 Months or Most Recently Relevant to Health Maintenance Results * VITAMIN B12 AND FOLATE (06/24/2025 10:45 AM CDT) VITAMIN B12 382 200 - 1100 pg/mL [facility] Comment: Please Note: Although the reference range for vitamin B12 is 200-1100 pg/mL, it has been reported that between 5 and 10% of patients with values between 200 and 400 pg/mL may experience neuropsychiatric and hematologic abnormalities due to occult B12 deficiency; less than 1% of patients with values above 400 pg/mL will have symptoms. FOLATE, SERUM 11.6 ng/mL [facility] Comment: Reference Range Low: <3.4 Borderline: 3.4-5.4 Normal: >5.4 Test Performed at: [facility] [id number] [place] [address] Fiona Bernal MD Blood 06/24/2025 10:4 5 AM CDT 06/24/2025 10:45 AM CDT us Arabella BASS CHEMISTRY ORDERABLES Final R esult [facility] [phone] [address] * (ABNORMAL) CBC WITH DIFFERENTIAL (06/24/2025 10:45 AM CDT) WBC 6.3 3.8 - 10.8 Thousand/u L [facility] RBC 4.47 3.80 - 5.10 Million/uL [facility] HEMOGLOBIN 13.8 11.7 - 15.5 g/dL [facility] HEMATOCRIT 43.4 35.0 - 45.0 % [facility] MCV 97.1 80.0 - 100.0 fL [facility] MCH 30.9 27.0 - 33.0 pg [facility] MCHC 31.8(L) 32.0 - 36.0 g/dL [facility] Comment: For adults, a slight decrease in the calculated MCHC value (in the range of 30 to 32 g/dL) is most likely not clinically significant; however, it should be interpreted with caution in correlation with other red cell parameters and the patient's clinical condition. RDW 11.7 11.0 - 15.0 % [facility] PLATELETS 236 140 - 400 Thousand/u L [facility] MPV 10.6 7.5 - 12.5 fL [facility] NEUTROPHIL ABSOLUTE 3,119 1,500 - 7,800 cells/uL [facility] LYMPHOCYTE ABSOLUTE 2,432 850 - 3,900 cells/uL [facility] MONOCYTE ABSOLUTE 536 200 - 950 cells/uL [facility] EOSINOPHIL ABSOLUTE 132 15 - 500 cells/uL [facility] BASOPHILS ABSOLUTE 82 0 - 200 cells/uL [facility] NEUTROPHIL 49.5 % [facility] LYMPHOCYTES 38.6 % [facility] MONOCYTE 8.5 % [facility] EOSINOPHILS 2.1 % [facility] BASOPHILS 1.3 % [facility] Comment: Test Performed at: [facility] [address] Fiona Bernal MD Blood 06/24/2025 10:4 5 AM CDT 06/24/2025 10:45 AM CDT us Arabella BASS HEMATOLOGY ORDERABLES Final Result [facility] [phone] [address] * VITAMIN D 25 HYDROXY (06/24/2025 10:45 AM CDT) VITAMIN D, 25 OH, TOTAL 38 30 - 100 ng/mL [facility] Comment: Vitamin D Status 25-OH Vitamin D: Deficiency: <20 ng/mL Insufficiency: 20 - 29 ng/mL Optimal: > or = 30 ng/mL For 25-OH Vitamin D testing on patients on D2-supplementation and patients for whom quantitation of D2 and D3 fractions is required, the QuestAssureD(TM) 25-OH VIT D, (D2,D3), LC/MS/MS is recommended: order code 05565 (patients >2yrs). See Note 1 Note 1 For additional information, please refer to http://education.Cytocentrics/faq/DGO498 (This link is being provided for informational/ educational purposes only.) Test Performed at: [facility] [address] [place] [address] Fiona Bernal MD Blood 06/24/2025 10:4 5 AM CDT 06/24/2025 10:45 AM CDT Arabella BASS CHEMISTRY ORDERABLES Final R esult [facility] [phone] [facility] [address] [place] [address] * GC/CHLAMYDIA, UROGENITAL (01/10/2025 10:38 AM CDT) CHLAMYDIA TRACHOMATIS RNA, TMA, UROGENITAL TNP [facility] Comment: TEST NOT PERFORMED Specimen transport device did not contain the collection swab. Test Performed at: [facility] [id number] [facility] [place] [address] Fiona Bernal MD Genital SPECIMEN FROM VAGINA / Unknown 01/10/2025 10:38 AM CDT 01/10/2025 7:42 PM CDT Edith Godfrey NP MICROBIOLOGY - GENERAL ORDERABLES Final Result Performing Organization Address City/[facility]/ZIP Co de Phone Number [facility] [phone] [facility] [address] [facility] [place] [address] * CERV/VAG CYTO AGE BASED SCREEN PAP W CT/NG, TRICH (01/30/2024 10:41 AM CDT) COMMENT (PAP): [facility] [place] Comment: This order for age-based cervical cancer and STI screening follows ACOG guidelines(PB 168, 140, YTT134). See individual assays for performing site location. CLINICAL INFORMATION [facility] [place] Comment:None given LAST MENSTRUAL PERIOD [facility] [place] Comment:NONE GIVEN PREV PAP: [facility] [place] Comment:NONE GIVEN PREV BX: [facility] [place] Comment:NONE GIVEN SOURCE [facility] [place] Comment:Endocervix ADEQUACY: [facility] [place] Comment: Satisfactory for evaluation. Endocervical/transformation zone component present. Age and/or menstrual status not provided PAP INTERP [facility] [place] Comment: Cytology Results: Negative for intraepithelial lesion or malignancy. COMMENT (PAP TEST) [facility] [place] Comment: This Pap test has been evaluated with computer assisted technology. OFFICE EQUIPMENT MECHANIC: [facility] [place] Comment: MMD, CT(ASCP) CT Screening Location: [place] [address] EXPLANATORY NOTE Que [employer] [facility] [place] Comment: EXPLANATORY NOTE: The Pap is a screening test for cervical cancer. It is not a diagnostic test and is subject to false negative and false positive results. It is most reliable when a satisfactory sample, regularly obtained, is submitted with relevant clinical findings and history, and when the Pap result is evaluated along with historic and current clinical information. C TRAC RNA NOT DETECTED NOT DETECTED [facility] [place] N.GONORRHOEAE RNA, TMA NOT DETECTED NOT DETECTED [facility] [place] COMMENT INFECTIOUS DISEASE [facility] [place] Comment: The analytical performance characteristics of this assay, when used to test SurePath(TM) specimens have been determined by [facility]. The modifications have not been cleared or approved by the FDA. This assay has been validated pursuant to the CLIA regulations and is used for clinical purposes. For additional information, please refer to https://Numerify.Haload.OneRiot/faq/WIU585 (This link is being provided for information/ educational purposes only.) TRICHOMONAS VAGINALIS,QUALITAT GARRY,PAP VIAL NOT DETECTED NOT DETECTED [facility] [place] Comment: The analytical performance characteristics of this assay have been determined by [facility]. The modifications have not been cleared or approved by the FDA. This assay has been validated pursuant to the CLIA regulations and is used for clinical purposes. For additional information, please refer to http://Numerify.Translimit/ faq/Trichomonastma (This link is being provided for information/ educational purposes only.) Test Performed at: [facility] [address] [place] [address] Fiona PHAN Genital SWAB OF ENDOCERVIX / Unknown 01/30/2024 10:41 AM CDT 02/02/2024 4:32 AM CDT us Stefanie Daley LIVESTOCK COUNTER PATHOLOGY/CYTOLOGY ORDERABL ES Final Result [facility] [phone] [facility] [address] [place] [address] from Last 3 Months or Most Recently Relevant to Health Maintenance Insurance [employer] [facility] BLUE ACCESS CHOICE Advance Directives For more information, please contact: [phone] * Full Code (Latest Code Status on File) Date Activated Date Inactivated Comments 04/29/2024 11:44 AM 04/29/2024 3:19 PM * Full Code Date Activated Date Inactivated Comments 06/27/2023 7:04 AM 06/27/2023 5:20 PM Care Teams Speed Runner Relationship Specialty Start Date End Date Romeo Worley MD [address] [place] [address] [place] [address] PCP - General Family Practice 03/28/25
--- OUTSIDE RECORDS SUMMARY | 2025-09-02 19:28 | XMS_ITS | Clinical Summary ---
Author Organization [facility] Address [address] [place] [address] Care Team Providers Care Progress Developer Name Role Phone Unavailable Primary Care Provider Unavailabl e Source Comments [facility],non-owned Affiliates and Associated Physician Practices is amultiple site organization consisting of ambulatory clinics and hospital sitesin [place], [place], [place] and [place]. This disclosure is being madepursuant to the Care Everywhere program and may not contain all information available regarding this patient. Last updated 18.[facility] Allergies No known active allergies Medications * Be aware that medications may not be up to date on this document. Alwaysverify current medications with the patient. No known medications Active Problems No known active problems Social History Tobacco Use Types Packs/Day Years Used Date Smoking Tobacco: Never Assessed Comments Unknown Sex and Gender Information Value Date Recorded Sex Assigned at Not on file Legal Sex Female 2:46 PM CDT Gender Identity Not on file Sexual Orientation Not on file Last Filed Vital Signs Vital Sign Reading Time Taken Comments Blood Pressure 100/54 05/07/2018 1:36 PM CDT Pulse - - Temperature - - Respiratory Rate - - Oxygen Saturation - - Inhaled Oxygen Concentration - - Weight 92.2 kg (203 lb 4.2 oz) 05/07/2018 1:36 P M CDT Height 165.5 cm (5' 5.16) 05/07/2018 1:36 PM CD T Body Mass Index 33.66 05/07/2018 1:36 PM CDT Plan of Treatment Health Maintenance Due Date Last Done Comments HIV SCREENING 2017 HPV VACCINE (1 - 3-dose series) 2017 CHLAMYDIA/GONORRHEA SCREENING 2018 MENINGOCOCCAL (Group B) VACC INE SHARED DECISION-MAKING (1 of 2 - Standard) 2018 HEPATITIS C SCREENING 05/13/2020 DTAP/TDAP/TD VACCINES (1 - Tdap) 2021 HEPATITIS B VACCINE (1 of 3 - 19+ 3-dose series) 2021 DEPRESSION SCREENING 10/06/2024 COVID-19 VACCINE (1 - 2024-2 6 season) 2025 INFLUENZA VACCINE (#1) 2025 ZOSTER VACCINE (1 of 2) 2052 HIB VACCINE Aged Out No longer eligi ble based on patient's age to complete this topic MENINGOCOCCAL GROUPS A/C/Y/W VACCINE Aged Out No longer eligible b ased on patient's age to complete this topic PNEUMOCOCCAL VACCINE Aged Out No long er eligible based on patient's age to complete this topic Insurance ANTHEM ANTHEM
--- OUTSIDE RECORDS SUMMARY | 2025-09-02 19:28 | XMS_ITS | Clinical Summary ---
Author Organization [facility] Address [address] [place] [address] Phone Care Team Providers Care Dealer Support Technician Name Role Phone Ismael Becker MD Primary Care Provider [phone] Allergies No known active allergies Medications ketorolac (TORADOL) 10 MG Tablet Take 1 Tab by mouth every 6 hours as needed for Moderate or more severe pain. 20 Tab 11/02/2020 Active Social History Tobacco Use Types Packs/Day Years Used Date Smoking Tobacco: Never Smokeless Tobacco: Never Alcohol Use Standard Drinks/Week Comments Never 0 (1 standard drink = 0.6 oz pur e alcohol) AUDIT-C Answer Date Recorded Q1: How often do you have a drink containing alc ohol? Never 11/02/2020 Average Number of Drinks Not on file 021 Frequency of Binge Drinking Not on file 10/07 Comments No Sex and Gender Information Value Date Recorded Sex Assigned at Not on file Legal Sex Female 7:15 PM CDT Gender Identity Not on file Sexual Orientation Not on file Last Filed Vital Signs Vital Sign Reading Time Taken Comments Blood Pressure 129/72 12/29/2023 10:00 PM CDT Pulse 56 12/29/2023 10:00 PM CDT Temperature 36.4 C (97.5 F) 12/29/2023 8:09 PM CDT Respiratory Rate 16 12/29/2023 10:00 PM CDT Oxygen Saturation 99% 12/29/2023 10:00 PM CDT Inhaled Oxygen Concentration - - Weight 87.1 kg (192 lb) 12/29/2023 8:09 PM CDT Height 165.1 cm (5' 5) 12/29/2023 8:09 PM CDT Body Mass Index 31.95 12/29/2023 8:09 PM CDT Plan of Treatment Health Maintenance Due Date Last Done Comments Hepatitis C Virus (HCV) Screening 2002 Pap Smear 2023 Influenza Immunization (#1) 2025 SARS-COV-2 Immunization ( season) 2025 11/27/2021, 11/06/2021, 11/06/2021 Respiratory Syncytial Virus (RSV) Immunization (Adult) (1 - 1-dose 75+ series) 2077 Hepatitis B Immunization Completed 003, 2002, 2002 Pneumococcal Immunization Combined Aged Out 05/22/2004 No longer eligible based on patient's age to complete this topic Measles Mumps Rubella (MMR) Immunization Discontinued 02/20/2007, 09/20/2003 Varicella Immunization Completed 02/20/2007, 2002 DTaP/Tdap/Td Immunization Discontinued 2012, 02/20/2007, 11/22/2003, Additional history exists TdaP Immunization Completed 05/04/2013 Hepatitis A Immunization Discontinued 05/11/2014, 04/07 Human Papillomavirus (HPV) Immunization Completed 04/26/2016, 04/26/2016, 07/29/2015, Additional history exists Meningococcal Immunization (ACWY) Completed 05/21/2018, 05/21/2018, 04/24/2015 Meningococcal B Immunization Completed 04/30/2019, 05/21/2018 Rotavirus Immunization Aged Out No lo nger eligible based on patient's age to complete this topic Insurance [facility] Care Teams Dealer Support Technician Relationship Specialty Start Date End Date Ismael Becker MD [address] [place] [address] PCP - General Internal Medicine 12/30/23
[2025-09-02 19:30] VITALS: BP 119/62; PULSE 72; RESP 16; TEMP 37.1; O2SAT 100
--- NOTE | 2025-09-02 19:42 | ED_ITS ---
HPI - URI/Sore Throat General Chief Complaint: Upper Respiratory Infection Stated Complaint: throat pain Time Seen by Provider: 09/02/25 19:42 Source: patient Mode of arrival: ambulatory Limitations: no limitations History of Present Illness HPI Narrative: 25-year-old female presents with complaint of sore throat since yesterday afternoon. Patient reports she feels feverish, body aches and fatigue. Patient concern for strep throat. Patient reports that she does have large tonsils at baseline but more swollen than usual. All systems reviewed and negative except as noted above. Related Data Home Medications ?Medication ?Instructions ?Recorded ?Confirmed ?Last Taken ?Type norgestimate 0.25 mg-ethinyl 1 tablet PO DAILY 2 05/11/22 Unknown History estradiol 0.035 mg tablet (Shahida) sertraline 50 mg tablet mg 09/02/25 Unknown History Allergies Allergy/AdvReac Type Severity Reaction Status Date / Time No Known Allergies Allergy Verified 09/02/25 19:27 [facility] Past Medical History Medical History No active medical problems Surgical History Surgical History No history of previous surgery Family History Family History Mother Hypertension Social History Social History Smoking status: Never smoker Substance use: never Living arrangements: with family Gender identity (if verbalized by the patient): Female Comments At time of signature, agree with nursing past medical, surgical, social and family history. There is no relevant family history pertinent to the presenting complaint. Exam Narrative: GENERAL: This is a well-nourished, well-developed patient, in no apparent distress. HEAD: normocephalic, atraumatic. EYES: PERRL. Sclera clear/white. Vision is grossly intact. EARS: External ears normal, auditory canals clear and without drainage, TMs normal without perforation. Hearing grossly intact. NOSE: External nose normal with no obvious nasal discharge, nares without redn ess, no rhinorrhea. THROAT: Mucous membranes moist, No significant erythema noted. Tonsils 2+ bilaterally without exudates. NECK: Neck supple, non-tender without lymphadenopathy, masses or thyromegaly. CARDIOVASCULAR: Regular rate and rhythm without murmurs, gallops, or rubs. RESPIRATORY: Clear to auscultation. Breath sounds equal bilaterally. No wheezes, rales, or rhonchi. SKIN: warm, Dry, intact with no suspicious lesions or rash, good texture and turgor. NEURO: awake, alert, and oriented to person, place and time. There were no obvious focal neurologic abnormalities. EXTREMITIES: No joint tenderness, effusion, or edema noted. Course Course Level of Care: Express Care Visit Vital Signs Vital signs: Vital Signs Temperature 37.1 C 09/02/25 19:30 Pulse Rate 72 09/02/25 19:30 Respiratory Rate 16 09/02/25 19:30 Blood Pressure 119/62 09/02/25 19:30 Pulse Oximetry 100 09/02/25 19:30 Oxygen Delivery Room Air 09/02/25 19:30 Temperature 37.1 C 09/02/25 19:30 Pulse Rate 72 09/02/25 19:30 Respiratory Rate 16 09/02/25 19:30 Blood Pressure 119/62 09/02/25 19:30 Pulse Oximetry 100 09/02/25 19:30 Oxygen Delivery Room Air 09/02/25 19:30 Reviewed MDM - URI/Sore Throat MDM Narrative Medical decision making narrative: will treat swollen tonsils with Medrol Dosepak. rapid strep negative. Patient wants to wait for strep culture prior to treating antibiotic. Patient is well- appearing, nontoxic. Lab Data Labs: Lab Results 09/02/25 Range/Units 19:43 POC Grp A Strep Screen Negative (Negative) Discharge Plan Discharge Clinical Impression: Acute tonsillitis Patient Disposition: Home Condition: Stable Instructions: Tonsillitis (ED) Additional Instructions: Your strep test was negative today. A strep culture was ordered and results will take 48-72 hours. If her strep culture is positive we will call you at that time and prescribed an antibiotic. Take steroid Dosepak as prescribed. Take Tylenol or ibuprofen every 6-8 hours as needed for pain. See your doctor if not improving. Patient Language: Swedish Prescriptions: New methylprednisolone [Medrol ([place])] 4 mg tablets,dose pack See Rx Instructions PO .COMPLEX Qty: 21 0RF Rx Instructions: orally per package directions No Action norgestimate-ethinyl estradiol [Shahida] 0.25-35 mg-mcg tablet 1 tablet PO DAILY sertraline 50 mg tablet Follow-up/Referrals: PHYSICIAN NOT ON STAFF,NONSTAFF [Primary Care Provider] Time of Disposition: 19:47
[2025-09-02 19:45] LABS: EDSTREPNEGPOS1 Negative (Negative)
== END 2025-09-02 19:52 | disposition home or self-care (01) ==
PROVIDERS: Emergency Provider Nurse Practitioner Family
DX: J03.90 Acute tonsillitis, unspecified (principal)
CPT/HCPCS: 87081; 87880; 99213; G0463